=== PATIENT | male | born 1955 | race Caucasian/White ===

== ENCOUNTER → 2018-01-18 | Outpatient (CLI) | payer MEDICARE, BC ==
[~2018-01-18] VITALS: Ht 182.9 cm; Wt 93.2 kg
[~2018-01-18] MED LIST: CITALOPRAM40 MG PO; LANSOPRAZOLE30 M2 PO; REQUIP0.25 M1 PO; REVATIO20 MG PO
[2018-01-18 15:47] LABS: EOS # 0.3 (0.04-0.40); EOS % 4.1 % (0.0-4.0); HEMATOCRIT 43.9 % (42.0-52.0); HEMOGLOBIN 14.5 g/dL (13.5-18.0); MEAN CELL VOLUME 96 fl (78-100); MEAN CORPUSCULAR HEMOGLOBIN 32 pg (27-31); MEAN CORPUSCULAR HGB CONC 33 g/dL (33-37); MEAN PLATELET VOLUME 9.4 fl (7.4-10.4); MONO # 0.8 (0.20-0.80); NEU # 3.5 (1.40-6.50); PLATELET COUNT 257 K/mm3 (130-400); RED BLOOD COUNT 4.59 M/mm3 (4.20-5.60); RED CELL DISTRIBUTION WIDTH 12.5 % (11.5-14.5); WHITE BLOOD COUNT 6.5 K/mm3 (4.8-10.8)
[2018-01-18 16:01] LABS: BUN/CREATININE RATIO 14.5 (6.0-26.0); CALCIUM 9.1 mg/dL (8.4-10.2); TOTAL BILIRUBIN 0.3 mg/dL (0.2-1.3); TOTAL PROTEIN 7.2 g/dL (6.3-8.2)
[2018-01-18 17:41] LABS: ERYTHROCYTE SEDIMENTATION RATE 0 mm/hr (0-20)
== END ==
LOC: AMSURD 15:23
PROVIDERS: Internal Medicine
DX: Z00.00 Encounter for general adult medical examination without abnormal findings (principal); I10 Essential (primary) hypertension; Z12.5 Encounter for screening for malignant neoplasm of prostate; E78.5 Hyperlipidemia, unspecified; R53.83 Other fatigue

== ENCOUNTER → 2019-01-29 | Outpatient (CLI) | payer MEDICARE, BC ==
[2019-01-29 12:32] LABS: EOS # 0.1 (0.04-0.40); EOS % 2.4 % (0.0-4.0); HEMATOCRIT 43.1 % (42.0-52.0); HEMOGLOBIN 13.9 g/dL (13.5-18.0); LYMPH# 1.4 (1.50-4.00); MEAN CELL VOLUME 95 fl (78-100); MEAN CORPUSCULAR HEMOGLOBIN 31 pg (27-31); MEAN CORPUSCULAR HGB CONC 32 g/dL (33-37); MEAN PLATELET VOLUME 9.6 fl (7.4-10.4); MONO # 0.6 (0.20-0.80); NEU # 3.2 (1.40-6.50); PLATELET COUNT 256 K/mm3 (130-400); RED BLOOD COUNT 4.56 M/mm3 (4.20-5.60); RED CELL DISTRIBUTION WIDTH 13.1 % (11.5-14.5); WHITE BLOOD COUNT 5.4 K/mm3 (4.8-10.8)
[2019-01-29 12:38] LABS: ALBUMIN 4.3 g/dL (3.5-5.0); CALCIUM 9.1 mg/dL (8.4-10.2); POTASSIUM 4.5 mmol/L (3.6-5.0); TOTAL BILIRUBIN 0.5 mg/dL (0.2-1.3); TOTAL PROTEIN 7.5 g/dL (6.3-8.2)
[2019-01-29 13:37] LABS: ERYTHROCYTE SEDIMENTATION RATE 4 mm/hr (0-20)
== END ==
LOC: LAB 12:05
PROVIDERS: Internal Medicine
DX: E78.2 Mixed hyperlipidemia (principal); G25.81 Restless legs syndrome; Z12.5 Encounter for screening for malignant neoplasm of prostate

== ENCOUNTER → 2019-01-30 | Outpatient (CLI) | payer MEDICARE, BC | LOC: LAB 14:42 | DX: Z00.00 Encounter for general adult medical examination without abnormal findings (principal) ==

== ENCOUNTER → 2020-06-01 | Outpatient (CLI) | payer MEDICARE, BC ==
[2020-06-01 10:22] LABS: EOS # 0.2 (0.04-0.40); EOS % 4.5 % (0.0-4.0); HEMATOCRIT 36.5 % (42.0-52.0); LYMPH# 1.3 (1.50-4.00); MEAN CELL VOLUME 85 fl (78-100); MEAN CORPUSCULAR HEMOGLOBIN 26 pg (27-31); MEAN CORPUSCULAR HGB CONC 30 g/dL (33-37); MEAN PLATELET VOLUME 9.5 fl (7.4-10.4); MONO # 0.5 (0.20-0.80); NEU # 2.6 (1.40-6.50); PLATELET COUNT 319 K/mm3 (130-400); RED BLOOD COUNT 4.29 M/mm3 (4.20-5.60); RED CELL DISTRIBUTION WIDTH 15.9 % (11.5-14.5); WHITE BLOOD COUNT 4.6 K/mm3 (4.8-10.8)
[2020-06-01 10:23] LABS: POTASSIUM 4.3 mmol/L (3.5-5.1)
[2020-06-01 10:26] LABS: TOTAL PROTEIN 7.6 g/dL (6.2-8.1)
[2020-06-01 10:28] LABS: TOTAL BILIRUBIN 0.4 mg/dL (0.2-1.2)
[2020-06-01 12:38] LABS: ERYTHROCYTE SEDIMENTATION RATE 0 mm/hr (0-20)
== END ==
LOC: LAB 09:21
PROVIDERS: Internal Medicine
DX: Z12.5 Encounter for screening for malignant neoplasm of prostate (principal); Z12.11 Encounter for screening for malignant neoplasm of colon; E78.2 Mixed hyperlipidemia; G25.81 Restless legs syndrome; N52.03 Combined arterial insufficiency and corporo-venous occlusive erectile dysfunction

== ENCOUNTER → 2021-02-09 | Outpatient (CLI) | payer MEDICARE ==
[~2021-02-09] MED LIST changes: +OMEPRAZOLE40 MG PO; +PROAIR HFA0.09 MG/AC IH; +XARELTO STARTER20 MG PO; +XARELTO20 MG PO
== END ==
LOC: RAD 11:58
DX: R06.09 Other forms of dyspnea (principal)

== ENCOUNTER → 2021-02-15 | Outpatient (CLI) | payer MEDICARE ==
[2021-02-15 10:36] LABS: ALBUMIN 4.3 g/dL (3.4-4.8); POTASSIUM 4.8 mmol/L (3.5-5.1)
[2021-02-15 10:38] LABS: CALCIUM 9.2 mg/dL (8.3-10.5)
[2021-02-15 10:39] LABS: TOTAL PROTEIN 7.6 g/dL (6.2-8.1)
[2021-02-15 10:41] LABS: TOTAL BILIRUBIN 0.3 mg/dL (0.2-1.2)
[2021-02-15 11:10] LABS: HEMATOCRIT 30.6 % (42.0-52.0); HEMOGLOBIN 8.5 g/dL (13.5-18.0); MEAN CELL VOLUME 73 fl (78-100); MEAN CORPUSCULAR HEMOGLOBIN 20 pg (27-31); MEAN CORPUSCULAR HGB CONC 28 g/dL (33-37); MEAN PLATELET VOLUME 9.2 fl (7.4-10.4); PLATELET COUNT 310 K/mm3 (130-400); RED BLOOD COUNT 4.22 M/mm3 (4.20-5.60); RED CELL DISTRIBUTION WIDTH 18.8 % (11.5-14.5); WHITE BLOOD COUNT 5.3 K/mm3 (4.8-10.8)
[2021-02-15 11:20] LABS: HYPOCHROMIA 1+; LYMPHOCYTE 20 % (20-51); MICROCYTOSIS 2+; MONOCYTE 8 % (3-10); NEUTROPHILS 65 % (42-75); OVALOCYTES 1+
== END ==
LOC: LAB 10:14
PROVIDERS: Internal Medicine
DX: R06.00 Dyspnea, unspecified (principal)

== ENCOUNTER → 2021-02-18 | Outpatient (CLI) | payer MEDICARE | LOC: LAB 16:55 | DX: D64.9 Anemia, unspecified (principal) ==

== ENCOUNTER → 2021-02-22 | Outpatient (CLI) | payer MEDICARE | LOC: AMSURD 14:11 | DX: R07.89 Other chest pain (principal) ==

== ENCOUNTER → 2021-02-23 | Outpatient (CLI) | payer MEDICARE | LOC: LAB 13:24 | DX: D64.9 Anemia, unspecified (principal) ==

== ENCOUNTER → 2021-03-01 | Outpatient (CLI) | payer MEDICARE | LOC: MSO 11:19 → LAB 11:37 | DX: Z01.812 Encounter for preprocedural laboratory examination (principal); Z20.822 Contact with and (suspected) exposure to COVID-19 ==

== ENCOUNTER → 2021-03-04 | Day surgery (SDC) | payer MEDICARE | END | disposition home or self-care (01) | LOC: MSO 08:04 | DX: D12.8 Benign neoplasm of rectum (principal); K57.30 Diverticulosis of large intestine without perforation or abscess without bleeding; D50.9 Iron deficiency anemia, unspecified; K21.00 Gastro-esophageal reflux disease with esophagitis, without bleeding; K44.9 Diaphragmatic hernia without obstruction or gangrene; F32.9 Major depressive disorder, single episode, unspecified; Z79.82 Long term (current) use of aspirin; Z79.899 Other long term (current) drug therapy; Z87.891 Personal history of nicotine dependence | CPT/HCPCS: 00813; J2704; J7120 ==

== ENCOUNTER → 2021-03-12 | Outpatient (CLI) | payer MEDICARE ==
[2021-03-12 09:59] LABS: EOS # 0.3 (0.04-0.40); EOS % 4.4 % (0.0-4.0); HEMATOCRIT 33.9 % (42.0-52.0); HEMOGLOBIN 9.2 g/dL (13.5-18.0); LYMPH# 1.1 (1.50-4.00); MEAN CELL VOLUME 76 fl (78-100); MEAN PLATELET VOLUME 8.8 fl (7.4-10.4); MONO # 0.8 (0.20-0.80); NEU # 4.2 (1.40-6.50); PLATELET COUNT 314 K/mm3 (130-400); RED BLOOD COUNT 4.47 M/mm3 (4.20-5.60); RED CELL DISTRIBUTION WIDTH 24.1 % (11.5-14.5); WHITE BLOOD COUNT 6.4 K/mm3 (4.8-10.8)
[2021-03-12 10:03] LABS: MEAN CORPUSCULAR HEMOGLOBIN 21 pg (27-31); MEAN CORPUSCULAR HGB CONC 27 g/dL (33-37)
== END ==
LOC: LAB 09:42
PROVIDERS: Internal Medicine
DX: D64.9 Anemia, unspecified (principal)

== ENCOUNTER 2021-03-19 10:43 | Emergency (ER) | payer MEDICARE ==
[~2021-03-19 10:43] MED LIST changes: -OMEPRAZOLE40 MG PO; -PROAIR HFA0.09 MG/AC IH; -XARELTO STARTER20 MG PO; -XARELTO20 MG PO
[2021-03-19] MEDS ORDERED: OMEPRAZOLE40 MG PO (11:02)
[2021-03-19] MEDS ORDERED: PROAIR HFA0.09 MG/AC IH (11:02)
[2021-03-19 12:20] LABS: HEMATOCRIT 33.4 % (42.0-52.0); HEMOGLOBIN 9.3 g/dL (13.5-18.0); MEAN CELL VOLUME 78 fl (78-100); MEAN CORPUSCULAR HEMOGLOBIN 22 pg (27-31); MEAN PLATELET VOLUME 8.9 fl (7.4-10.4); PLATELET COUNT 353 K/mm3 (130-400); RED BLOOD COUNT 4.31 M/mm3 (4.20-5.60); WHITE BLOOD COUNT 4.7 K/mm3 (4.8-10.8)
[2021-03-19 12:23] LABS: ALBUMIN 3.8 g/dL (3.4-4.8); MEAN CORPUSCULAR HGB CONC 28 g/dL (33-37); POTASSIUM 4.5 mmol/L (3.5-5.1); SODIUM 137 mmol/L (136-145)
[2021-03-19 12:25] LABS: CALCIUM 8.7 mg/dL (8.3-10.5)
[2021-03-19 12:26] LABS: GLUCOSE 99 mg/dL (75-110)
[2021-03-19 12:27] LABS: CARBON DIOXIDE 23 mmol/L (23-31)
[2021-03-19 12:28] LABS: TOTAL BILIRUBIN 0.6 mg/dL (0.2-1.2)
[2021-03-19 12:31] LABS: AST-SGOT 20 U/L (5-34)
[2021-03-19 12:32] LABS: ALT/SGPT 15 U/L (0-55)
[2021-03-19 12:36] LABS: LYMPHOCYTE 30 % (20-51); MONOCYTE 12 % (3-10); NEUTROPHILS 54 % (42-75)
[2021-03-19 12:37] LABS: HYPOCHROMIA 1+; MICROCYTOSIS 1+; OVALOCYTES 1+
[2021-03-19 12:52] LABS: TROPONIN-I < 0.03 ng/mL (<0.030)
[2021-03-19 12:52] LABS: URINE APPEARANCE CLEAR; URINE BILIRUBIN NEGATIVE (NEGATIVE); URINE BLOOD NEGATIVE (NEGATIVE); URINE COLOR YELLOW; URINE GLUCOSE NEGATIVE (NEGATIVE); URINE KETONE NEGATIVE (NEGATIVE); URINE LEUKOCYTE ESTERASE TRACE (NEGATIVE); URINE MUCUS PRESENT (NOT PRESENT); URINE NITRATE NEGATIVE (NEGATIVE); URINE PROTEIN(semi-quant) NEGATIVE (NEGATIVE); URINE UROBILINOGEN NORMAL (NORMAL)
[2021-03-19] MEDS ORDERED: XARELTO STARTER20 MG PO (15:00)
[2021-03-19 15:30] VITALS: BP 150/98
[2021-06-20] MEDS ORDERED: XARELTO20 MG PO (09:21)
== END 2021-03-19 15:30 | disposition home or self-care (01) ==
LOC: ED 10:43
PROVIDERS: Physician Assistant
DX: I26.99 Other pulmonary embolism without acute cor pulmonale (principal); F32.9 Major depressive disorder, single episode, unspecified; K21.9 Gastro-esophageal reflux disease without esophagitis; G25.81 Restless legs syndrome; Z87.891 Personal history of nicotine dependence; Z79.82 Long term (current) use of aspirin; Z79.899 Other long term (current) drug therapy
CPT/HCPCS: Q9967

== ENCOUNTER → 2021-03-19 | Outpatient (CLI) | payer MEDICARE ==
[2021-03-19 10:50] VITALS: BP 141/102
== END ==
LOC: AMSURD 15:08
DX: I26.99 Other pulmonary embolism without acute cor pulmonale (principal); R41.0 Disorientation, unspecified

== ENCOUNTER → 2021-03-23 | Outpatient (CLI) | payer MEDICARE ==
[2021-03-19 15:30] VITALS: BP 150/98
[~2021-03-23] MED LIST changes: +OMEPRAZOLE40 MG PO; +PROAIR HFA0.09 MG/AC IH; +XARELTO STARTER20 MG PO; +XARELTO20 MG PO
== END ==
LOC: RAD 10:15
DX: G45.9 Transient cerebral ischemic attack, unspecified (principal); I26.99 Other pulmonary embolism without acute cor pulmonale

== ENCOUNTER → 2021-04-01 | Outpatient (CLI) | payer MEDICARE ==
[2021-03-19 15:30] VITALS: BP 150/98
== END ==
LOC: RAD 08:58
DX: K44.9 Diaphragmatic hernia without obstruction or gangrene (principal)
CPT/HCPCS: Q9967

== ENCOUNTER → 2021-06-18 | Outpatient (CLI) | payer MEDICARE ==
[2021-06-18 15:18] LABS: BASO # 0.05 (0.02-0.10); EOS # 0.06 (0.04-0.40); EOS % 0.9 % (0.0-4.0); HEMATOCRIT 26.4 % (42.0-52.0); HEMOGLOBIN 7.5 g/dL (13.5-18.0); LYMPH# 1.28 (1.50-4.00); MEAN CELL VOLUME 75 fl (78-100); MEAN CORPUSCULAR HEMOGLOBIN 21 pg (27-31); MEAN CORPUSCULAR HGB CONC 28 g/dL (33-37); MONO # 0.78 (0.20-0.80); NEU # 4.72 (1.40-6.50); PLATELET COUNT 309 K/mm3 (130-400); RED BLOOD COUNT 3.54 M/mm3 (4.20-5.60); RED CELL DISTRIBUTION WIDTH 17.3 % (11.5-14.5); WHITE BLOOD COUNT 6.9 K/mm3 (4.8-10.8)
[2021-06-18 15:27] LABS: POTASSIUM 4.3 mmol/L (3.5-5.1)
[2021-06-18 15:28] LABS: CALCIUM 9.1 mg/dL (8.3-10.5)
[2021-06-18 15:29] LABS: TOTAL PROTEIN 7.5 g/dL (6.2-8.1)
[2021-06-18 15:31] LABS: TOTAL BILIRUBIN 0.3 mg/dL (0.2-1.2)
[2021-06-18 16:13] LABS: ALBUMIN 4.1 g/dL (3.4-4.8)
== END ==
LOC: LAB 15:00
PROVIDERS: Internal Medicine
DX: E61.1 Iron deficiency (principal); I26.99 Other pulmonary embolism without acute cor pulmonale

== ENCOUNTER → 2021-06-20 | Outpatient (CLI) | payer MEDICARE ==
[2021-06-20 10:42] LABS: BASO # 0.03 (0.02-0.10); EOS # 0.08 (0.04-0.40); EOS % 1.9 % (0.0-4.0); HEMATOCRIT 24.5 % (42.0-52.0); LYMPH# 1.02 (1.50-4.00); MEAN CELL VOLUME 76 fl (78-100); MEAN CORPUSCULAR HEMOGLOBIN 21 pg (27-31); MEAN CORPUSCULAR HGB CONC 28 g/dL (33-37); MEAN PLATELET VOLUME 8.8 fl (7.4-10.4); MONO # 0.56 (0.20-0.80); NEU # 2.54 (1.40-6.50); PLATELET COUNT 254 K/mm3 (130-400); RED BLOOD COUNT 3.23 M/mm3 (4.20-5.60); RED CELL DISTRIBUTION WIDTH 17.4 % (11.5-14.5); WHITE BLOOD COUNT 4.2 K/mm3 (4.8-10.8)
[2021-06-20 10:49] LABS: HEMOGLOBIN 6.9 g/dL (13.5-18.0)
[2021-06-20 10:54] LABS: ALBUMIN 3.5 g/dL (3.4-4.8); POTASSIUM 4.1 mmol/L (3.5-5.1); SODIUM 138 mmol/L (136-145)
[2021-06-20 10:55] LABS: CALCIUM 8.5 mg/dL (8.3-10.5)
[2021-06-20 10:56] LABS: GLUCOSE 112 mg/dL (75-110); TOTAL PROTEIN 6.5 g/dL (6.2-8.1)
[2021-06-20 10:57] LABS: CARBON DIOXIDE 21 mmol/L (23-31)
[2021-06-20 10:58] LABS: TOTAL BILIRUBIN 0.3 mg/dL (0.2-1.2)
[2021-06-20 11:02] LABS: AST-SGOT 19 U/L (5-34)
[2021-06-20 11:03] LABS: ALT/SGPT 13 U/L (0-55)
[2021-06-20 11:10] LABS: TROPONIN-I < 0.03 ng/mL (<0.030)
== END ==
LOC: LAB 09:29
PROVIDERS: Family Medicine
DX: Z01.89 Encounter for other specified special examinations (principal)

== ENCOUNTER 2021-06-24 08:59 | Outpatient (RCR) | payer MEDICARE ==
[2021-06-20] VITALS (13 sets, daily range): BP systolic 85–136; BP diastolic 59–90
--- NOTE | 2021-06-20 09:58 | NUR ---
0954 PATIENT'S VENOFER INFUSION RUNNING AT 300MLS/HR INFUSING FOR 1-2 MINUTES. PATIENT STATES "MAN IT'S GETTING HOT IN HERE I DON'T FEEL SO WELL" MEDICATION STOPPED IMMEDIATELY AT THIS TIME. PATIENT'S BP 94/63. HR 64. RR 28. SP02 100% ON ROOM AIR. PATIENT'S COLOR PALE. DIAPHORETIC. REPORTS HAVING UPSET STOMACH. PATIENT DRY HEAVES. PATIENT HYPERVENTILATING. INSTRUCTED PATIENT TO SLOW BREATHING AND TAKE BIG DEEP BREATHS IN AND OUT. STATES "SOMETHING IS WRONG" 0958 BP RECHECK 85/59 HEART RATE 65 SP02 100%. PATIENT STATES "I'M JUST SO HOT I NEED AIR. I'M SCARED" PATIENT GIVEN FAN REPORTS FEELING "A LITTLE BETTER" HAS A LITTLE MORE COLOR. ASSISTED PATIENT INTO BED TO LAY DOWN TO ASSIST WITH GETTING BP UP. PATIENT'S AT BEDSIDE.
--- NOTE | 2021-06-20 10:05 | NUR ---
NOTIFIED ABOUT WHAT IS GOING ON WITH PATIENT AND VITAL SIGNS. ORDERS RECEIVED FOR EKG,IV FLUIDS,BENADRYL, AND LABS.
--- NOTE | 2021-06-20 10:17 | NUR ---
patient lying in bed. patient's bp 103/62. heart rate 69. 100% sp02 on room air. patient has gotten some color back in face. no longer hyperventilating. reports feeling better. patient and educated on plan and new orders. verbalize understanding.
--- NOTE | 2021-06-20 10:23 | NUR ---
ekg obtained per order. ekg report given to .
--- NOTE | 2021-06-20 10:35 | NUR ---
in to see patient at this time.
--- NOTE | 2021-06-20 10:49 | NUR ---
PATIENT'S HGB OF 6.9 REPORTED TO . PER RESTART PATIENT'S VENOFER AT A SLOWER RATE AT LEAST OVER AN HOUR. NO FURTHER ORDERS AT THIS TIME.
--- NOTE | 2021-06-20 10:50 | NUR ---
PATIENT'S NS BOLUS COMPLETE. PATIENT'S VITAL SIGNS BP 119/82. 97.9 ORAL TEMP. 95% SPO2. HEART RATE 66. RR 16. PATIENT'S COLOR IMPROVED. PATIENT REPORTS FEELING A LOT BETTER.
--- NOTE | 2021-06-20 11:15 | NUR ---
PATIENT'S VENOFER STARTED AT THIS TIME AT 50MLS/HR. PATIENT HOOKED UP TO VITAL SIGNS MACHINE AND PLACED ON TELE. THIS NURSE REMAINING IN ROOM.
--- NOTE | 2021-06-20 11:30 | NUR ---
PATIENT'S VENOFER RATE INCREASED TO 100MLS/HR AT THIS TIME. PATIENT TOLERATING WELL. REPORTS FEELING "REALLY GOOD JUST SLEEPY FROM THE BENADRYL" VS WIHTIN NORMAL LIMITS. PATIENT'S AT BEDSIDE. THIS NURSE CONTINUING TO MONITOR PATIENT AT BEDSIDE.
--- NOTE | 2021-06-20 12:00 | NUR ---
PATIENT'S INFUSION RUNNING AT 100MLS/HR. PATIENT TOLERATING WELL. REPORTS FEELING GOOD AND DENIES ANY SYMPTOMS. VS WITHIN NORMAL LIMITS. REMAINS AT BEDSIDE.
--- NOTE | 2021-06-20 12:28 | NUR ---
NNAMDI'S VENOFER INFUSION COMPLETE AT THIS TIME. PATIENT STATES "I FEEL FINE I DON'T FEEL ANY SYMPTOMS" PATIENT'S VS WITHIN NORMAL LIMITS. PATIENT AGREEABLE TO WAIT 30 MINUTES BEFORE LEAVING HOSPITAL TO BE MONITORED FOR REACTION. WILL CONTINUE TO MONITOR.
--- NOTE | 2021-06-20 13:00 | NUR ---
PATIENT LEFT FACILITY AMBULATORY ACCOMPANIED BY TO POV AT THIS TIME. VS WITHIN NORMAL LIMITS. REMAINS FREE FROM SIGNS OR SYMPTOMS OF REACTION.
[2021-06-21 09:17] VITALS: BP 113/78
[2021-06-21 09:54] VITALS: BP 111/80
[2021-06-21 10:24] VITALS: BP 115/81
--- NOTE | 2021-06-21 10:24 | NUR ---
patient's infusion complete. patient tolerated well. no signs or symptoms of a reaction noted at this time. patient denies any symptoms reports feeling good. states "i feel really good i'm so glad things went so much smoother today than yesterday i don't think i could handle another morning like that"
[2021-06-22 09:32] VITALS: BP 122/84
[2021-06-22 10:13] VITALS: BP 111/72
[2021-06-23 09:21] VITALS: BP 128/83
[2021-06-23 10:27] VITALS: BP 106/82
[~2021-06-24] VITALS: Ht 185.4 cm; Wt 97.2 kg
[2021-06-24 09:20] VITALS: BP 119/82
[2021-06-24 10:41] VITALS: BP 127/87
== END 2021-09-18 ==
LOC: AMSURD
DX: E61.1 Iron deficiency (principal); Z79.899 Other long term (current) drug therapy
CPT/HCPCS: J1200; J1756; J7050

== ENCOUNTER → 2021-06-28 | Outpatient (CLI) | payer MEDICARE ==
[2021-06-28 09:48] LABS: BASO # 0.02 (0.02-0.10); EOS # 0.13 (0.04-0.40); EOS % 2.1 % (0.0-4.0); HEMATOCRIT 34.2 % (42.0-52.0); HEMOGLOBIN 9.6 g/dL (13.5-18.0); LYMPH# 1.39 (1.50-4.00); MEAN CELL VOLUME 83 fl (78-100); MEAN CORPUSCULAR HEMOGLOBIN 23 pg (27-31); MEAN CORPUSCULAR HGB CONC 28 g/dL (33-37); MEAN PLATELET VOLUME 9.7 fl (7.4-10.4); MONO # 0.63 (0.20-0.80); NEU # 4.02 (1.40-6.50); PLATELET COUNT 294 K/mm3 (130-400); RED BLOOD COUNT 4.14 M/mm3 (4.20-5.60); RED CELL DISTRIBUTION WIDTH 25.5 % (11.5-14.5); WHITE BLOOD COUNT 6.3 K/mm3 (4.8-10.8)
== END ==
LOC: LAB 07:54
PROVIDERS: Internal Medicine
DX: K25.4 Chronic or unspecified gastric ulcer with hemorrhage (principal)

== ENCOUNTER → 2021-07-09 | Outpatient (CLI) | payer MEDICARE | LOC: RAD 12:50 | DX: K44.9 Diaphragmatic hernia without obstruction or gangrene (principal); I26.99 Other pulmonary embolism without acute cor pulmonale | CPT/HCPCS: Q9967 ==

== ENCOUNTER → 2021-08-03 | Outpatient (CLI) | payer MEDICARE | LOC: CARDLAB 11:03 → CARDREHAB 11:03 → CARDLAB 15:13 | DX: G47.19 Other hypersomnia (principal) | CPT/HCPCS: G0399 ==

== ENCOUNTER → 2021-10-25 | Day surgery (SDC) | payer MEDICARE | LOC: MSO 07:02 | DX: K42.9 Umbilical hernia without obstruction or gangrene (principal); Z79.01 Long term (current) use of anticoagulants; D64.9 Anemia, unspecified; Z86.711 Personal history of pulmonary embolism; Z86.718 Personal history of other venous thrombosis and embolism; Z87.891 Personal history of nicotine dependence; Z79.82 Long term (current) use of aspirin; Z79.899 Other long term (current) drug therapy; G47.33 Obstructive sleep apnea (adult) (pediatric); K21.9 Gastro-esophageal reflux disease without esophagitis | CPT/HCPCS: 00830; C1781; J0690; J2704; J3010; J7120 ==

== ENCOUNTER → 2022-01-03 | Outpatient (CLI) | payer MEDICARE ==
[2022-01-03 17:14] LABS: BASO # 0.04 K/mm3 (0.02-0.10); EOS # 0.14 K/mm3 (0.04-0.40); EOS % 2.2 % (0.0-4.0); HEMATOCRIT 32.2 % (42.0-52.0); HEMOGLOBIN 9.1 g/dL (13.5-18.0); LYMPH# 1.88 K/mm3 (1.50-4.00); MEAN CELL VOLUME 77 fl (78-100); MEAN CORPUSCULAR HEMOGLOBIN 22 pg (27-31); MEAN CORPUSCULAR HGB CONC 28 g/dL (33-37); MEAN PLATELET VOLUME 8.5 fl (7.4-10.4); MONO # 0.69 K/mm3 (0.20-0.80); NEU # 3.67 K/mm3 (1.40-6.50); PLATELET COUNT 331 K/mm3 (130-400); RED CELL DISTRIBUTION WIDTH 17.9 % (11.5-14.5); WHITE BLOOD COUNT 6.4 K/mm3 (4.8-10.8)
[2022-01-03 17:27] LABS: ALBUMIN 4.2 g/dL (3.4-4.8); POTASSIUM 4.1 mmol/L (3.5-5.1)
[2022-01-03 17:28] LABS: CALCIUM 9.2 mg/dL (8.3-10.5)
[2022-01-03 17:30] LABS: TOTAL PROTEIN 7.6 g/dL (6.2-8.1)
[2022-01-03 17:31] LABS: TOTAL BILIRUBIN 0.2 mg/dL (0.2-1.2)
[2022-01-03 18:45] LABS: ERYTHROCYTE SEDIMENTATION RATE 11 mm/hr (0-20)
== END ==
LOC: LAB 17:03
PROVIDERS: Internal Medicine
DX: Z12.5 Encounter for screening for malignant neoplasm of prostate (principal); Z12.11 Encounter for screening for malignant neoplasm of colon; E61.1 Iron deficiency; K90.9 Intestinal malabsorption, unspecified; E78.2 Mixed hyperlipidemia; I26.99 Other pulmonary embolism without acute cor pulmonale; G47.19 Other hypersomnia; K42.9 Umbilical hernia without obstruction or gangrene; G47.33 Obstructive sleep apnea (adult) (pediatric); L30.9 Dermatitis, unspecified

== ENCOUNTER 2022-01-12 16:17 | Outpatient (RCR) | payer MEDICARE ==
[2022-01-08 09:48] VITALS: BP 133/87
[2022-01-08 10:00] VITALS: BP 128/89
[2022-01-09 09:26] VITALS: BP 124/85
[2022-01-10 16:56] VITALS: BP 125/84
[2022-01-11 17:05] VITALS: BP 125/86
[~2022-01-12] VITALS: Ht 185.4 cm; Wt 97.2 kg
[~2022-01-12 16:17] MED LIST changes: -REQUIP0.25 M1 PO; +ROPINIROLE HY0.25 MG PO
[2022-01-12 17:14] VITALS: BP 126/88
== END 2022-01-17 | disposition home or self-care (01) ==
LOC: AMSURD
DX: E61.1 Iron deficiency (principal)
CPT/HCPCS: J1200; J1756

== ENCOUNTER → 2022-01-14 | Outpatient (CLI) | payer MEDICARE ==
[~2022-01-14] MED LIST changes: +REQUIP0.25 M1 PO; -ROPINIROLE HY0.25 MG PO
== END ==
LOC: LAB 13:15
DX: Z12.5 Encounter for screening for malignant neoplasm of prostate (principal); Z12.11 Encounter for screening for malignant neoplasm of colon; E61.1 Iron deficiency; I26.99 Other pulmonary embolism without acute cor pulmonale; G47.19 Other hypersomnia; K42.9 Umbilical hernia without obstruction or gangrene; K90.9 Intestinal malabsorption, unspecified; L30.9 Dermatitis, unspecified

== ENCOUNTER 2022-02-14 16:35 | Outpatient (RCR) | payer MEDICARE ==
[~2022-02-14] VITALS: Ht 185.4 cm; Wt 92.3 kg
[~2022-02-14 16:35] MED LIST changes: -VITAMIN B122500 MC1 PO
[2022-02-14] MEDS ORDERED: VITAMIN B122500 MC1 PO (17:06)
[2022-02-14 17:10] VITALS: BP 130/89
== END 2022-02-17 | disposition home or self-care (01) ==
LOC: AMSURD
DX: Z51.81 Encounter for therapeutic drug level monitoring (principal)
CPT/HCPCS: J1200; J1756

== ENCOUNTER → 2022-02-14 | Outpatient (CLI) | payer MEDICARE ==
[~2022-02-14] MED LIST changes: -REQUIP0.25 M1 PO; +ROPINIROLE HY0.25 MG PO; +VITAMIN B122500 MC1 PO
[2022-02-14 16:57] LABS: BASO # 0.03 K/mm3 (0.02-0.10); EOS # 0.09 K/mm3 (0.04-0.40); EOS % 1.5 % (0.0-4.0); HEMATOCRIT 37.8 % (42.0-52.0); HEMOGLOBIN 11.3 g/dL (13.5-18.0); LYMPH# 1.62 K/mm3 (1.50-4.00); MEAN CELL VOLUME 84 fl (78-100); MEAN CORPUSCULAR HEMOGLOBIN 25 pg (27-31); MEAN CORPUSCULAR HGB CONC 30 g/dL (33-37); MEAN PLATELET VOLUME 8.6 fl (7.4-10.4); MONO # 0.59 K/mm3 (0.20-0.80); NEU # 3.68 K/mm3 (1.40-6.50); PLATELET COUNT 275 K/mm3 (130-400); RED BLOOD COUNT 4.51 M/mm3 (4.20-5.60); RED CELL DISTRIBUTION WIDTH 23.6 % (11.5-14.5)
[2022-02-14 17:01] LABS: ALBUMIN 4.3 g/dL (3.4-4.8); POTASSIUM 4.1 mmol/L (3.5-5.1)
[2022-02-14 17:02] LABS: CALCIUM 9.4 mg/dL (8.3-10.5)
[2022-02-14 17:04] LABS: TOTAL PROTEIN 7.5 g/dL (6.2-8.1)
[2022-02-14 17:05] LABS: TOTAL BILIRUBIN 0.3 mg/dL (0.2-1.2)
== END ==
LOC: LAB 16:14
PROVIDERS: Internal Medicine
DX: Z12.11 Encounter for screening for malignant neoplasm of colon (principal); Z12.5 Encounter for screening for malignant neoplasm of prostate; E61.1 Iron deficiency; I26.99 Other pulmonary embolism without acute cor pulmonale; R06.09 Other forms of dyspnea; G47.19 Other hypersomnia; K42.9 Umbilical hernia without obstruction or gangrene; K90.9 Intestinal malabsorption, unspecified; G47.33 Obstructive sleep apnea (adult) (pediatric); E78.2 Mixed hyperlipidemia

== ENCOUNTER → 2022-03-09 | Outpatient (CLI) | payer MEDICARE ==
[~2022-03-09] MED LIST changes: +VITAMIN B122500 MC1 PO
[2022-03-09 14:49] LABS: BASO # 0.04 K/mm3 (0.02-0.10); EOS # 0.13 K/mm3 (0.04-0.40); HEMATOCRIT 40.3 % (42.0-52.0); HEMOGLOBIN 12.3 g/dL (13.5-18.0); LYMPH# 1.88 K/mm3 (1.50-4.00); MEAN CELL VOLUME 85 fl (78-100); MEAN CORPUSCULAR HEMOGLOBIN 26 pg (27-31); MEAN CORPUSCULAR HGB CONC 31 g/dL (33-37); MEAN PLATELET VOLUME 8.5 fl (7.4-10.4); MONO # 0.62 K/mm3 (0.20-0.80); NEU # 3.84 K/mm3 (1.40-6.50); PLATELET COUNT 281 K/mm3 (130-400); RED BLOOD COUNT 4.76 M/mm3 (4.20-5.60); RED CELL DISTRIBUTION WIDTH 23.1 % (11.5-14.5); WHITE BLOOD COUNT 6.5 K/mm3 (4.8-10.8)
[2022-03-09 14:59] LABS: ALBUMIN 4.2 g/dL (3.4-4.8); POTASSIUM 4.7 mmol/L (3.5-5.1)
[2022-03-09 15:01] LABS: CALCIUM 9.4 mg/dL (8.3-10.5)
[2022-03-09 15:02] LABS: TOTAL PROTEIN 7.5 g/dL (6.2-8.1)
[2022-03-09 15:04] LABS: TOTAL BILIRUBIN 0.3 mg/dL (0.2-1.2)
== END ==
LOC: LAB 14:37
PROVIDERS: Nurse Practitioner Family
DX: S69.92XA Unspecified injury of left wrist, hand and finger(s), initial encounter (principal)

== ENCOUNTER → 2022-03-18 | Outpatient (CLI) | payer MEDICARE ==
[~2022-03-18] VITALS: Ht 185.4 cm; Wt 92.3 kg
[2022-03-18 18:37] VITALS: BP 120/45
[2022-04-15 17:19] VITALS: BP 130/87
== END ==
LOC: AMSURD 16:31
DX: Z51.81 Encounter for therapeutic drug level monitoring (principal)
CPT/HCPCS: J1200; J1756

== ENCOUNTER → 2022-04-15 | Outpatient (CLI) | payer MEDICARE ==
[~2022-04-15] VITALS: Ht 185.4 cm; Wt 92.3 kg
[2022-04-15 17:09] VITALS: BP 130/87
--- NOTE | 2022-04-15 17:52 | NUR ---
Lab notified this nurse blood draw was hemolized and unable to be ran. Dr. Stearns notified of findings. Re-draw prior to next ordered infusion. Next infusion ordered for next month.
== END ==
LOC: AMSURD 16:48 → LAB 16:48
DX: E61.1 Iron deficiency (principal)
CPT/HCPCS: J1200; J1756

== ENCOUNTER → 2022-04-20 | Outpatient (CLI) | payer MEDICARE | LOC: LAB 09:14 | DX: Z12.5 Encounter for screening for malignant neoplasm of prostate (principal); Z12.11 Encounter for screening for malignant neoplasm of colon; R06.09 Other forms of dyspnea; G47.19 Other hypersomnia; K42.9 Umbilical hernia without obstruction or gangrene; E61.1 Iron deficiency; K90.9 Intestinal malabsorption, unspecified; G47.33 Obstructive sleep apnea (adult) (pediatric); E78.2 Mixed hyperlipidemia ==

== ENCOUNTER → 2022-06-02 | Outpatient (CLI) | payer MEDICARE ==
[~2022-06-02] VITALS: Ht 185.4 cm; Wt 92.3 kg
[2022-06-02 15:51] VITALS: BP 151/90
[2022-06-02 16:30] VITALS: BP 113/82
[2022-06-02 16:45] LABS: BASO # 0.03 K/mm3 (0.02-0.10); EOS # 0.11 K/mm3 (0.04-0.40); EOS % 1.5 % (0.0-4.0); HEMATOCRIT 39.1 % (42.0-52.0); HEMOGLOBIN 12.6 g/dL (13.5-18.0); LYMPH# 1.81 K/mm3 (1.50-4.00); MEAN CELL VOLUME 90 fl (78-100); MEAN CORPUSCULAR HEMOGLOBIN 29 pg (27-31); MEAN CORPUSCULAR HGB CONC 32 g/dL (33-37); MEAN PLATELET VOLUME 9.3 fl (7.4-10.4); NEU # 4.31 K/mm3 (1.40-6.50); PLATELET COUNT 249 K/mm3 (130-400); RED BLOOD COUNT 4.36 M/mm3 (4.20-5.60); RED CELL DISTRIBUTION WIDTH 16.3 % (11.5-14.5); WHITE BLOOD COUNT 7.2 K/mm3 (4.8-10.8)
== END ==
LOC: AMSURD 10:58 → LAB 15:23 → AMSURD 15:23
PROVIDERS: Internal Medicine
DX: E61.1 Iron deficiency (principal)
CPT/HCPCS: J1200; J1756

== ENCOUNTER → 2022-06-07 | Outpatient (CLI) | payer MEDICARE ==
[2022-06-07 08:58] LABS: BASO # 0.02 K/mm3 (0.02-0.10); EOS # 0.28 K/mm3 (0.04-0.40); EOS % 4.3 % (0.0-4.0); HEMATOCRIT 41.8 % (42.0-52.0); HEMOGLOBIN 13.4 g/dL (13.5-18.0); LYMPH# 1.04 K/mm3 (1.50-4.00); MEAN CELL VOLUME 91 fl (78-100); MEAN CORPUSCULAR HEMOGLOBIN 29 pg (27-31); MEAN CORPUSCULAR HGB CONC 32 g/dL (33-37); MEAN PLATELET VOLUME 8.5 fl (7.4-10.4); NEU # 4.51 K/mm3 (1.40-6.50); PLATELET COUNT 238 K/mm3 (130-400); RED CELL DISTRIBUTION WIDTH 16.2 % (11.5-14.5); WHITE BLOOD COUNT 6.6 K/mm3 (4.8-10.8)
[2022-06-09 21:41] LABS: LYME DISEASE EIA Negative (Negative)
[2022-06-09 23:30] LABS: E. CHAFFEENSIS IGG AB <1:64 titer (<1:64)
== END ==
LOC: LAB 08:40
PROVIDERS: Nurse Practitioner Family
DX: L08.9 Local infection of the skin and subcutaneous tissue, unspecified (principal)

== ENCOUNTER → 2022-06-29 | Outpatient (CLI) | payer MEDICARE | LOC: LAB 12:31 | DX: Z20.822 Contact with and (suspected) exposure to COVID-19 (principal) ==

== ENCOUNTER → 2022-07-29 | Outpatient (CLI) | payer MEDICARE ==
[~2022-07-29] VITALS: Ht 185.4 cm; Wt 92.3 kg
[2022-07-29 15:45] VITALS: BP 161/93
== END ==
LOC: AMSURD 15:27
DX: Z79.899 Other long term (current) drug therapy (principal)
CPT/HCPCS: J1756

== ENCOUNTER → 2022-09-23 | Outpatient (CLI) | payer MEDICARE ==
[2022-09-23 11:40] LABS: BASO # 0.02 K/mm3 (0.02-0.10); EOS # 0.13 K/mm3 (0.04-0.40); EOS % 2.7 % (0.0-4.0); HEMATOCRIT 43.5 % (42.0-52.0); HEMOGLOBIN 13.9 g/dL (13.5-18.0); LYMPH# 1.29 K/mm3 (1.50-4.00); MEAN CELL VOLUME 90 fl (78-100); MEAN CORPUSCULAR HEMOGLOBIN 29 pg (27-31); MEAN CORPUSCULAR HGB CONC 32 g/dL (33-37); MEAN PLATELET VOLUME 8.9 fl (7.4-10.4); MONO # 0.53 K/mm3 (0.20-0.80); NEU # 2.81 K/mm3 (1.40-6.50); PLATELET COUNT 249 K/mm3 (130-400); RED BLOOD COUNT 4.83 M/mm3 (4.20-5.60); RED CELL DISTRIBUTION WIDTH 14.3 % (11.5-14.5); WHITE BLOOD COUNT 4.8 K/mm3 (4.8-10.8)
[2022-09-23 11:55] LABS: POTASSIUM 4.1 mmol/L (3.5-5.1)
[2022-09-23 11:58] LABS: TOTAL PROTEIN 7.1 g/dL (6.2-8.1)
[2022-09-23 12:00] LABS: TOTAL BILIRUBIN 0.5 mg/dL (0.2-1.2)
[2022-09-23 12:03] LABS: URINE APPEARANCE CLEAR; URINE BILIRUBIN NEGATIVE (NEGATIVE); URINE BLOOD NEGATIVE (NEGATIVE); URINE COLOR YELLOW; URINE GLUCOSE NEGATIVE (NEGATIVE); URINE KETONE NEGATIVE (NEGATIVE); URINE LEUKOCYTE ESTERASE NEGATIVE (NEGATIVE); URINE NITRATE NEGATIVE (NEGATIVE); URINE PROTEIN(semi-quant) NEGATIVE (NEGATIVE); URINE UROBILINOGEN NORMAL (NORMAL)
[2022-09-23 13:59] LABS: ERYTHROCYTE SEDIMENTATION RATE 10 mm/hr (0-20)
== END ==
LOC: LAB 11:14
PROVIDERS: Internal Medicine
DX: Z12.11 Encounter for screening for malignant neoplasm of colon (principal); I26.99 Other pulmonary embolism without acute cor pulmonale; N20.0 Calculus of kidney; K44.9 Diaphragmatic hernia without obstruction or gangrene; K42.9 Umbilical hernia without obstruction or gangrene; E78.2 Mixed hyperlipidemia; E61.1 Iron deficiency; K90.9 Intestinal malabsorption, unspecified; G47.33 Obstructive sleep apnea (adult) (pediatric); G25.81 Restless legs syndrome; L30.9 Dermatitis, unspecified; G47.19 Other hypersomnia

== ENCOUNTER → 2022-10-27 | Outpatient (CLI) | payer MEDICARE ==
[2022-10-27 09:51] LABS: POTASSIUM 4.8 mmol/L (3.5-5.1)
[2022-10-27 09:52] LABS: CALCIUM 9.2 mg/dL (8.3-10.5)
== END ==
LOC: LAB 09:12
PROVIDERS: Nurse Practitioner Family
DX: Z20.822 Contact with and (suspected) exposure to COVID-19 (principal)

== ENCOUNTER → 2024-03-26 | Outpatient (CLI) | payer MEDICARE ==
[2024-03-26 08:30] LABS: BASO # 0.02 K/mm3 (0.02-0.10); EOS # 0.12 K/mm3 (0.04-0.40); EOS % 2.9 % (0.0-4.0); HEMATOCRIT 34.4 % (42.0-52.0); HEMOGLOBIN 10.1 g/dL (13.5-18.0); LYMPH# 1.17 K/mm3 (1.50-4.00); MEAN CELL VOLUME 81 fl (78-100); MEAN CORPUSCULAR HEMOGLOBIN 24 pg (27-31); MEAN CORPUSCULAR HGB CONC 29 g/dL (33-37); MEAN PLATELET VOLUME 8.4 fl (7.4-10.4); MONO # 0.56 K/mm3 (0.20-0.80); PLATELET COUNT 293 K/mm3 (130-400); RED BLOOD COUNT 4.23 M/mm3 (4.20-5.60); RED CELL DISTRIBUTION WIDTH 16.2 % (11.5-14.5); WHITE BLOOD COUNT 4.2 K/mm3 (4.8-10.8)
[2024-03-26 08:37] LABS: ALBUMIN 3.9 g/dL (3.4-4.8)
[2024-03-26 08:38] LABS: CALCIUM 9.1 mg/dL (8.3-10.5)
[2024-03-26 08:39] LABS: TOTAL PROTEIN 6.8 g/dL (6.2-8.1)
[2024-03-26 08:41] LABS: TOTAL BILIRUBIN 0.4 mg/dL (0.2-1.2)
[2024-03-26 08:46] LABS: MAGNESIUM 2.04 mg/dL (1.60-2.60)
[2024-03-26 22:37] LABS: TESTOSTERONE 440 ng/dL (221-716)
[2024-03-26 22:45] LABS: HEPATITIS C VIRUS ANTIBODY Negative (Negative)
== END ==
LOC: LAB 09:20
PROVIDERS: Internal Medicine
DX: Z12.5 Encounter for screening for malignant neoplasm of prostate (principal); Z12.11 Encounter for screening for malignant neoplasm of colon; Z11.59 Encounter for screening for other viral diseases; E78.2 Mixed hyperlipidemia; K90.9 Intestinal malabsorption, unspecified; R73.9 Hyperglycemia, unspecified; F52.21 Male erectile disorder

== ENCOUNTER → 2024-04-04 | Outpatient (CLI) | payer MEDICARE ==
[2024-05-21 11:57] LABS: D-DIMER 1.39 mg/L FEU (0.15-0.50)
== END ==
LOC: LAB 08:00
PROVIDERS: Nurse Practitioner Family
DX: R22.32 Localized swelling, mass and lump, left upper limb (principal)

== ENCOUNTER → 2024-06-10 | Outpatient (CLI) | payer MEDICARE ==
[2024-06-10 13:27] LABS: BASO # 0.01 K/mm3 (0.02-0.10); EOS # 0.13 K/mm3 (0.04-0.40); EOS % 1.5 % (0.0-4.0); HEMATOCRIT 42.1 % (42.0-52.0); HEMOGLOBIN 13.2 g/dL (13.5-18.0); LYMPH# 1.27 K/mm3 (1.50-4.00); MEAN CELL VOLUME 90 fl (78-100); MEAN CORPUSCULAR HEMOGLOBIN 28 pg (27-31); MEAN CORPUSCULAR HGB CONC 31 g/dL (33-37); MEAN PLATELET VOLUME 8.6 fl (7.4-10.4); MONO # 0.84 K/mm3 (0.20-0.80); NEU # 6.56 K/mm3 (1.40-6.50); PLATELET COUNT 302 K/mm3 (130-400); RED BLOOD COUNT 4.66 M/mm3 (4.20-5.60); WHITE BLOOD COUNT 8.8 K/mm3 (4.8-10.8)
[2024-06-10 13:35] LABS: CALCIUM 9.6 mg/dL (8.3-10.5)
[2024-06-10 13:36] LABS: TOTAL PROTEIN 7.4 g/dL (6.2-8.1)
[2024-06-10 13:38] LABS: TOTAL BILIRUBIN 0.3 mg/dL (0.2-1.2)
== END ==
LOC: LAB 13:15
PROVIDERS: Internal Medicine
DX: E61.1 Iron deficiency (principal)

== ENCOUNTER → 2024-06-11 | Outpatient (CLI) | payer MEDICARE | LOC: RAD 15:53 | DX: R05.3 Chronic cough (principal) ==

== ENCOUNTER → 2024-09-09 | Outpatient (CLI) | payer MEDICARE ==
[~2024-09-09] VITALS: Ht 185.4 cm; Wt 92.3 kg
[~2024-09-09] MED LIST changes: +Iron Sucrose 200 MG in NS 100 ML Over 15 minutes IV ONE; +VIT D3-VIT K21 EACH PO
[2024-09-09 08:21] VITALS: BP 143/92
[2024-09-09 08:53] VITALS: BP 139/88
== END ==
LOC: AMSURD 07:56
DX: Z79.899 Other long term (current) drug therapy (principal)
CPT/HCPCS: J1756

== ENCOUNTER → 2024-11-04 | Outpatient (CLI) | payer MEDICARE ==
[~2024-11-04] VITALS: Ht 185.4 cm; Wt 92.3 kg
[2024-11-04 09:12] VITALS: BP 129/86
[2024-11-04 09:41] VITALS: BP 142/87
[2024-11-04 09:45] VITALS: BP 142/87
== END ==
LOC: AMSURD 08:56
DX: Z51.81 Encounter for therapeutic drug level monitoring (principal); Z79.899 Other long term (current) drug therapy
CPT/HCPCS: J1756

== ENCOUNTER → 2024-12-05 | Outpatient (CLI) | payer MEDICARE ==
[~2024-12-05] VITALS: Ht 185.4 cm; Wt 92.3 kg
[2024-12-05 08:16] VITALS: BP 150/97
[2024-12-05 08:54] VITALS: BP 138/92
== END ==
LOC: AMSURD 07:53
DX: Z51.81 Encounter for therapeutic drug level monitoring (principal); Z79.899 Other long term (current) drug therapy
CPT/HCPCS: J1756

== ENCOUNTER → 2024-12-24 | Outpatient (CLI) | payer MEDICARE ==
[~2024-12-24] MED LIST changes: -Iron Sucrose 200 MG in NS 100 ML Over 15 minutes IV ONE
[2024-12-24 09:38] LABS: BASO # 0.01 K/mm3 (0.02-0.10); EOS # 0.13 K/mm3 (0.04-0.40); EOS % 2.5 % (0.0-4.0); HEMATOCRIT 49.5 % (42.0-52.0); HEMOGLOBIN 16.3 g/dL (13.5-18.0); LYMPH# 1.34 K/mm3 (1.50-4.00); MEAN CELL VOLUME 99 fl (78-100); MEAN CORPUSCULAR HEMOGLOBIN 33 pg (27-31); MEAN CORPUSCULAR HGB CONC 33 g/dL (33-37); MEAN PLATELET VOLUME 9.4 fl (7.4-10.4); MONO # 0.47 K/mm3 (0.20-0.80); NEU # 3.22 K/mm3 (1.40-6.50); PLATELET COUNT 232 K/mm3 (130-400); RED BLOOD COUNT 5.02 M/mm3 (4.20-5.60); RED CELL DISTRIBUTION WIDTH 11.9 % (11.5-14.5); WHITE BLOOD COUNT 5.2 K/mm3 (4.8-10.8)
[2024-12-24 09:44] LABS: ALBUMIN 4.4 g/dL (3.4-4.8)
[2024-12-24 09:45] LABS: CALCIUM 9.8 mg/dL (8.3-10.5)
[2024-12-24 09:46] LABS: TOTAL PROTEIN 7.8 g/dL (6.2-8.1)
[2024-12-24 09:48] LABS: TOTAL BILIRUBIN 0.6 mg/dL (0.2-1.2)
[2024-12-24 09:53] LABS: MAGNESIUM 2.04 mg/dL (1.60-2.60)
== END ==
LOC: LAB 09:22
PROVIDERS: Internal Medicine
DX: K90.9 Intestinal malabsorption, unspecified (principal); E78.2 Mixed hyperlipidemia; R73.03 Prediabetes

== ENCOUNTER → 2025-01-30 | Outpatient (CLI) | payer MEDICARE ==
[2025-01-30 10:08] LABS: BASO # 0.01 K/mm3 (0.02-0.10); EOS # 0.12 K/mm3 (0.04-0.40); EOS % 2.5 % (0.0-4.0); HEMATOCRIT 46.9 % (42.0-52.0); HEMOGLOBIN 15.1 g/dL (13.5-18.0); LYMPH# 1.32 K/mm3 (1.50-4.00); MEAN CELL VOLUME 99 fl (78-100); MEAN CORPUSCULAR HEMOGLOBIN 32 pg (27-31); MEAN CORPUSCULAR HGB CONC 32 g/dL (33-37); MEAN PLATELET VOLUME 9.1 fl (7.4-10.4); MONO # 0.46 K/mm3 (0.20-0.80); NEU # 2.81 K/mm3 (1.40-6.50); PLATELET COUNT 231 K/mm3 (130-400); RED BLOOD COUNT 4.75 M/mm3 (4.20-5.60); WHITE BLOOD COUNT 4.7 K/mm3 (4.8-10.8)
[2025-01-30 10:35] LABS: D-DIMER 0.41 mg/L FEU (0.15-0.50)
== END ==
LOC: LAB 09:39
PROVIDERS: Internal Medicine
DX: R06.00 Dyspnea, unspecified (principal)

== ENCOUNTER → 2025-02-06 | Outpatient (CLI) | payer MEDICARE | LOC: RAD 16:59 | DX: M50.322 Other cervical disc degeneration at C5-C6 level (principal); M50.323 Other cervical disc degeneration at C6-C7 level; M50.33 Other cervical disc degeneration, cervicothoracic region ==

== ENCOUNTER → 2025-02-11 | Outpatient (CLI) | payer MEDICARE | LOC: RAD 07:56 | DX: J98.6 Disorders of diaphragm (principal) ==